=== PATIENT | female | born 1970 | race African-American/Black ===

== ENCOUNTER 2020-09-01 16:37 | Emergency (ER) | payer MEDICAID ==
[~2020-09-01] VITALS: Ht 152.4 cm; Wt 82.0 kg
[2020-09-01] MEDS ORDERED: PREDNISONE 20MG TABLET PO STA (16:59)
[2020-09-01] MEDS ORDERED: ALBUTEROL (0.083%) 2.5MG/3ML NEB HHN STA (16:59)
[2020-09-01] MEDS ORDERED: IPRATROPIUM BROMIDE (0.02%) 0.5MG/2.5ML NEB HHN STA (16:59)
[2020-09-01] MEDS ORDERED: PREDNISONE 20MG TABLET PO NR (18:15)
[2020-09-01] MEDS ORDERED: P50 MT (19:10)
[2020-09-01] MEDS ORDERED: ALBU90AE INH (19:10)
[2020-09-01 19:53] VITALS: BP 136/74
== END 2020-09-01 19:57 | disposition home or self-care (01) ==
LOC: ER 16:37
DX: J45.909 Unspecified asthma, uncomplicated (principal); R00.0 Tachycardia, unspecified; R03.0 Elevated blood-pressure reading, without diagnosis of hypertension; F17.210 Nicotine dependence, cigarettes, uncomplicated; Z71.6 Tobacco abuse counseling; M41.9 Scoliosis, unspecified
CPT/HCPCS: 71045; 93005; 94644; 99285; J7512; Z7610

== ENCOUNTER 2023-12-28 09:03 | Emergency (ER) | payer MEDICAID ==
[~2023-12-28] VITALS: Ht 157.5 cm; Wt 62.0 kg
[~2023-12-28 09:03] MED LIST: ACET-3163 MT; ALBU90AE INH; CEPH500C2 MT; HYDR-4001 MT; NICO-645 TP; [UNRECOGNIZED DRUG - CODE] TOP
[2023-12-28 09:35] LABS: BASOPHILS % 0.8 % (0.0-2.0); EOSINOPHILS % 3.7 % (0.0-5.0); HEMATOCRIT. 33.3 % (36.0-48.0); HEMOGLOBIN. 11.4 g/dL (12.0-16.0); LYMPHOCYTES % 36.4 % (20.0-50.0); MEAN CORPUSCULAR HEMOGLOBIN 28.9 pg (28.0-32.0); MEAN CORPUSCULAR HGB CONC 34.1 g/dL (31.0-37.0); MEAN CORPUSCULAR VOLUME 84.7 fL (81.0-99.0); MEAN PLATELET VOLUME 8.6 fl (7.4-10.4); MONOCYTES % 6.5 % (2.0-8.0); NEUTROPHILS % 52.6 % (40.0-76.0); PLATELET 260 x1000/uL (130-400); RED BLOOD CELL COUNT 3.94 mill/uL (4.2-5.4); RED CELL DISTRIBUTION WIDTH 14.3 % (11.6-14.6); WHITE BLOOD COUNT 8.2 x1000/uL (4.5-11.0)
[2023-12-28 09:43] LABS: CHLORIDE 110 mEq/L (98-107); POTASSIUM 3.4 mEq/L (3.5-5.1); SODIUM 142 mEq/L (136-145)
[2023-12-28 09:44] LABS: CARBON DIOXIDE 27 mEq/L (21-32)
[2023-12-28 09:45] LABS: CALCIUM 9.5 mg/dL (8.7-10.4)
[2023-12-28 09:49] LABS: CREATININE 0.8 mg/dL (0.6-1.0); GLUCOSE 103 mg/dL (70-105); UREA NITROGEN BLOOD 9 mg/dL (9-23)
[2023-12-28 09:56] LABS: TROPONIN I HIGH SENSITIVITY < 4 ng/L (3.0-34)
[2023-12-28 10:17] VITALS: PULSE 75; RESP 20; O2SAT 98
[2023-12-28] MEDS: IPRATROPIUM BROMIDE (0.02%) 0.5MG/2.5ML NEB HHN STA (10:17)
[2023-12-28] MEDS: ALBUTEROL (0.083%) 2.5MG/3ML NEB HHN STA (10:17)
[2023-12-28] MEDS: DEXAMETHASONE 4MG/ML 1ML VIAL IM ONE (10:23)
[2023-12-28] MEDS ORDERED: OXYM30SP26 BOTHNSTRLS (11:08)
[2023-12-28 11:11] VITALS: BP 147/98; PULSE 72; RESP 18; TEMP 37.00296; O2SAT 99
== END 2023-12-28 11:27 | disposition home or self-care (01) ==
LOC: ER 09:03
DX: R06.02 Shortness of breath (principal); R05.9 Cough, unspecified; J45.909 Unspecified asthma, uncomplicated; Z90.89 Acquired absence of other organs; Z98.51 Tubal ligation status; Z79.899 Other long term (current) drug therapy
CPT/HCPCS: 80048; 85025; 84484; 36415; 71045; 94640; 93005; 96372; 99285; J1100; Z7610 ×2

== ENCOUNTER 2024-01-21 21:08 | Emergency (ER) | payer MEDICAID ==
[~2024-01-21] VITALS: Ht 152.4 cm; Wt 68.0 kg
[~2024-01-21 21:08] MED LIST changes: +OXYM30SP26 BOTHNSTRLS
[2024-01-21 21:35] VITALS: TEMP 98.4; O2SAT 100
[2024-01-21] MEDS ORDERED: IBUPROFEN 800MG TABLET PO ONE (23:00)
[2024-01-21] MEDS ORDERED: HYDROCODONE/ACETAMINOPHEN 10/325MG TABLET PO ONE (23:00)
[2024-01-22] MEDS ORDERED: IBUP-2030 MT (00:17)
[2024-01-22] MEDS ORDERED: CYCL5TAB MT (00:18)
[2024-01-22 00:19] VITALS: O2SAT 100
[2024-01-22 00:20] VITALS: BP 151/94; PULSE 65; RESP 16
[2024-01-22] MEDS: IBUPROFEN 800MG TABLET PO NR (00:20)
[2024-01-22] MEDS: HYDROCODONE/ACETAMINOPHEN 10/325MG TABLET PO NR (00:20)
== END 2024-01-22 00:25 | disposition home or self-care (01) ==
LOC: ER 21:08
DX: R51.9 Headache, unspecified (principal); M54.2 Cervicalgia; J45.909 Unspecified asthma, uncomplicated; Z98.51 Tubal ligation status; Z98.890 Other specified postprocedural states; Z79.899 Other long term (current) drug therapy
CPT/HCPCS: 71045; 73030; 99284

== ENCOUNTER 2024-08-05 23:14 | Emergency (ER) | payer MEDICAID ==
[~2024-08-05] VITALS: Ht 160 cm; Wt 64.6 kg
[~2024-08-05 23:14] MED LIST changes: +CYCL5TAB3 MT; +IBUP-2030 MT; +NEOM28OI53 TOP; -[UNRECOGNIZED DRUG - CODE] TOP
[2024-08-05 23:19] VITALS: O2SAT 100
[2024-08-05] MEDS ORDERED: IBUP-2028 MT (23:42)
[2024-08-05] MEDS ORDERED: TOPUD PO (23:42)
[2024-08-05] MEDS ORDERED: SULF1TAB48 MT (23:42)
[2024-08-05] MEDS ORDERED: CEPH500C2 MT (23:42)
[2024-08-05] MEDS: IBUPROFEN 600MG TABLET PO ONE (23:51)
[2024-08-05] MEDS: SULFAMETHOXAZOLE/TRIMETHOPRIM 800/160MG TABLET PO ONE (23:52)
[2024-08-05] MEDS: ACETAMINOPHEN 325MG TABLET PO ONE (23:52)
[2024-08-05] MEDS: CEPHALEXIN 250MG CAPSULE PO ONE (23:53)
[2024-08-05 23:56] VITALS: BP 141/83; PULSE 90; RESP 20; TEMP 36.9; O2SAT 100
== END 2024-08-05 23:55 | disposition home or self-care (01) ==
LOC: ER 23:14
DX: L08.9 Local infection of the skin and subcutaneous tissue, unspecified (principal); L03.011 Cellulitis of right finger; J45.909 Unspecified asthma, uncomplicated; Z79.899 Other long term (current) drug therapy; Z98.890 Other specified postprocedural states
CPT/HCPCS: 99284

== ENCOUNTER 2024-09-26 09:45 | Emergency (ER) | payer MEDICAID ==
[~2024-09-26] VITALS: Ht 152.4 cm; Wt 59.6 kg
[~2024-09-26 09:45] MED LIST changes: +IBUP-2028 MT; +SULF1TAB48 MT; +TOPUD PO
[2024-09-26 10:01] VITALS: TEMP 36.7; O2SAT 99
[2024-09-26 11:24] VITALS: BP 129/85; PULSE 105; RESP 16; O2SAT 100
== END 2024-09-26 11:27 | disposition home or self-care (01) ==
LOC: ER 09:45
DX: R09.A9 Foreign body sensation, other site (principal); J45.909 Unspecified asthma, uncomplicated
CPT/HCPCS: 99281

== ENCOUNTER 2024-11-01 21:29 | Emergency (ER) | payer MEDICAID ==
[~2024-11-01] VITALS: Ht 152.4 cm; Wt 57.0 kg
[2024-11-01 22:06] VITALS: O2SAT 99
[2024-11-02] MEDS: ACETAMINOPHEN 500MG TABLET PO ONE (00:51)
[2024-11-02 01:19] VITALS: BP 104/66; PULSE 89; RESP 14; TEMP 36.9; O2SAT 99
== END 2024-11-02 01:20 | disposition home or self-care (01) ==
LOC: ER 21:29
DX: S91.331A Puncture wound without foreign body, right foot, initial encounter (principal); J45.909 Unspecified asthma, uncomplicated; Z79.899 Other long term (current) drug therapy; W25.XXXA Contact with sharp glass, initial encounter; Y93.89 Activity, other specified; Y92.89 Other specified places as the place of occurrence of the external cause; Y99.8 Other external cause status
CPT/HCPCS: 73630; 99283

== ENCOUNTER 2024-12-19 11:30 | Emergency (ER) | payer MEDICAID ==
[~2024-12-19] VITALS: Ht 160 cm; Wt 59.0 kg
[2024-12-19 11:55] VITALS: O2SAT 98
[2024-12-19 13:30] LABS: BASOPHILS % 1.3 % (0.0-2.0); EOSINOPHILS % 3.1 % (0.0-5.0); HEMATOCRIT. 34.8 % (36.0-48.0); HEMOGLOBIN. 11.8 g/dL (12.0-16.0); LYMPHOCYTES % 46.5 % (20.0-50.0); MEAN PLATELET VOLUME 8.8 fl (7.4-10.4); MONOCYTES % 6.5 % (2.0-8.0); NEUTROPHILS % 42.6 % (40.0-76.0); PLATELET 252 x1000/uL (130-400); RED BLOOD CELL COUNT 4.09 mill/uL (4.2-5.4); RED CELL DISTRIBUTION WIDTH 14.7 % (11.6-14.6)
[2024-12-19 13:41] LABS: CREATININE 0.8 mg/dL (0.6-1.0); UREA NITROGEN BLOOD 14 mg/dL (9-23)
[2024-12-19 13:43] LABS: ASPARTATE AMINOTRANSFERASE 24 IU/L (<34); BILIRUBIN DIRECT 0.1 mg/dL (<=3.0); BILIRUBIN TOTAL 0.5 mg/dL (0.1-1.0); PROTEIN TOTAL 6.5 g/dL (6.0-8.3)
[2024-12-19 15:29] LABS: CLARITY URINE CLEAR (CLEAR); COLOR URINE YELLOW (YELLOW); GLUCOSE URINE NEGATIVE (NEGATIVE); KETONES URINE TRACE (NEGATIVE); LEUKOCYTE ESTERASE URINE NEGATIVE (NEGATIVE); NITRITE URINE NEGATIVE (NEGATIVE); OCCULT BLOOD URINE NEGATIVE (NEGATIVE); PH URINE 5.5 (4.5-8.0); PROTEIN URINE NEGATIVE (NEGATIVE); SPECIFIC GRAVITY URINE 1.024 (1.005-1.030); UROBILINOGEN URINE 1.0 E.U./dL (0.2-1.0)
[2024-12-19 15:42] LABS: *AMPHETAMINES SCREEN URINE NEGATIVE (NEGATIVE); *BARBITURATES SCREEN URINE NEGATIVE (NEGATIVE); *BENZODIAZEPINES SCREEN URINE NEGATIVE (NEGATIVE); *COCAINE SCREEN URINE PRESUMPTIVE POSITIVE (NEGATIVE); CANNABINOID URINE SCREEN NEGATIVE (NEGATIVE); ECSTASY MDMA SCREEN URINE NEGATIVE (NEGATIVE); METHADONE URINE SCREEN NEGATIVE (NEGATIVE); OPIATES URINE SCREEN NEGATIVE (NEGATIVE); PHENCYCLIDINE URINE SCREEN NEGATIVE (NEGATIVE)
[2024-12-19] MEDS ORDERED: CLIN-194 MT (17:06)
[2024-12-19] MEDS: IOHEXOL-300 100 ML BOTTLE ONE (17:14)
[2024-12-19 18:04] VITALS: BP 125/83; PULSE 94; RESP 20; TEMP 37.1; O2SAT 100
[2024-12-19] MEDS: CLINDAMYCIN HCL 150MG CAPSULE PO SCH (18:06)
[2024-12-22 13:08] LABS: CHLAMYDIA TRACHOMATIS NAA Negative (Negative); NEISSERIA GONORRHOEAE NAA Negative (Negative)
== END 2024-12-19 18:07 | disposition home or self-care (01) ==
LOC: ER 12:11 → CANBEDREQ 18:05 → ER 18:07
DX: R10.9 Unspecified abdominal pain (principal); R09.89 Other specified symptoms and signs involving the circulatory and respiratory systems; J45.909 Unspecified asthma, uncomplicated; M54.2 Cervicalgia; K42.9 Umbilical hernia without obstruction or gangrene; Z11.3 Encounter for screening for infections with a predominantly sexual mode of transmission; Z98.82 Breast implant status; Z79.899 Other long term (current) drug therapy
CPT/HCPCS: 87491; 87591; 80076; 80305; 80048; 81003; 83690; 84443; 85025; 36415; 70491; 74177; 99285; Q9967; Z7610; A4606